=== PATIENT | female | born 1985 | race African-American/Black ===

== ENCOUNTER 2018-04-05 03:06 | Emergency (ER) | payer MEDICAID ==
[~2018-04-05] VITALS: Ht 162.6 cm; Wt 77.0 kg
[2018-04-05 03:47] VITALS: BP 120/69
[2018-04-05 04:29] LABS: CLARITY URINE TURBID (CLEAR); COLOR URINE YELLOW (YELLOW); KETONES URINE NEGATIVE (NEGATIVE); LEUKOCYTE ESTERASE URINE 3+ (NEGATIVE); NITRITE URINE NEGATIVE (NEGATIVE); OCCULT BLOOD URINE 3+ (NEGATIVE); PH URINE 8.5 (4.5-8.0); PROTEIN URINE 2+ (NEGATIVE)
== END 2018-04-05 10:34 | disposition left against medical advice (07) ==
LOC: ER 03:06
DX: Z53.21 Procedure and treatment not carried out due to patient leaving prior to being seen by health care provider (principal)
CPT/HCPCS: 87077; 87186

== ENCOUNTER 2018-04-06 09:34 | Emergency (ER) | payer MEDICAID ==
[~2018-04-06] VITALS: Ht 162.6 cm; Wt 65.0 kg
[2018-04-06] MEDS ORDERED: KETOROLAC 30MG/ML VIAL IV ONE (10:30)
[2018-04-06] MEDS ORDERED: CEFTRIAXONE 1 G PREMIX 50 ML IV ONE (10:30)
[2018-04-06 11:30] LABS: BASOPHILS % 0.2 % (0.0-2.0); EOSINOPHILS % 0.7 % (0.0-5.0); HEMATOCRIT. 36.1 % (36.0-48.0); HEMOGLOBIN. 11.2 g/dL (12.0-16.0); LYMPHOCYTES % 18.6 % (20.0-50.0); MEAN CORPUSCULAR HEMOGLOBIN 22.4 pg (28.0-32.0); MEAN CORPUSCULAR VOLUME 72.5 fL (81.0-99.0); MEAN PLATELET VOLUME 8.6 fl (7.4-10.4); MONOCYTES % 5.9 % (2.0-8.0); NEUTROPHILS % 74.6 % (40.0-76.0); PLATELET 261 x1000/uL (130-400); RED BLOOD CELL COUNT 4.98 mill/uL (4.2-5.4); RED CELL DISTRIBUTION WIDTH 15.6 % (11.6-14.6)
[2018-04-06 11:37] LABS: CHLORIDE 105 mEq/L (98-107)
[2018-04-06 11:45] LABS: CLARITY URINE TURBID (CLEAR); COLOR URINE YELLOW (YELLOW); KETONES URINE NEGATIVE (NEGATIVE); LEUKOCYTE ESTERASE URINE 3+ (NEGATIVE); NITRITE URINE NEGATIVE (NEGATIVE); OCCULT BLOOD URINE 3+ (NEGATIVE); PROTEIN URINE 2+ (NEGATIVE); SPECIFIC GRAVITY URINE 1.022 (1.005-1.030)
[2018-04-06 12:12] LABS: PHENCYCLIDINE URINE SCREEN NEGATIVE (NEGATIVE)
[2018-04-06 12:13] LABS: *AMPHETAMINES SCREEN URINE NEGATIVE (NEGATIVE); *BARBITURATES SCREEN URINE NEGATIVE (NEGATIVE); *BENZODIAZEPINES SCREEN URINE NEGATIVE (NEGATIVE); *COCAINE SCREEN URINE NEGATIVE (NEGATIVE); METHADONE URINE SCREEN NEGATIVE (NEGATIVE); OPIATES URINE SCREEN NEGATIVE (NEGATIVE)
[2018-04-06 12:20] LABS: CANNABINOID URINE SCREEN PRESUMTIVE POSITIVE (NEGATIVE)
[2018-04-06 12:25] LABS: HCG SCREEN NEGATIVE
[2018-04-06 13:29] VITALS: BP 129/78
== END 2018-04-06 13:31 | disposition home or self-care (01) ==
LOC: ER 10:18
DX: N39.0 Urinary tract infection, site not specified (principal); F12.10 Cannabis abuse, uncomplicated; Z98.890 Other specified postprocedural states
CPT/HCPCS: 36415; 80053; 80305; 81003; 81025; 83690; 84703; 85025; 85610; 87077; 87086; 87186; 96374; 96375; 99283; J0696; J1885

== ENCOUNTER 2018-10-11 20:11 | Emergency (ER) | payer MEDICAID ==
[~2018-10-11] VITALS: Ht 162.6 cm; Wt 79.0 kg
[2018-10-11 20:37] VITALS: BP 116/70
== END 2018-10-12 00:50 | disposition left against medical advice (07) ==
LOC: ER 20:11
DX: N93.9 Abnormal uterine and vaginal bleeding, unspecified (principal); Z53.21 Procedure and treatment not carried out due to patient leaving prior to being seen by health care provider